=== PATIENT | male | born 1995 | race Caucasian/White ===

== ENCOUNTER 2020-03-14 18:52 | Emergency (ER) | payer OTHER ==
[~2020-03-14] VITALS: Ht 185.4 cm; Wt 113.4 kg
[2020-03-14 19:22] LABS: ABSOLUTE NEUTROPHILS 4.9 thou/uL (1.4-8.2); BASOPHILS 0.7 % (0.0-2.0); EOSINOPHILS 5.3 % (0.0-3.0); HEMATOCRIT 43.7 % (42.0-52.0); HEMOGLOBIN 14.8 gm/dL (14.0-18.0); LYMPHOCYTES 36.3 % (24.0-44.0); MCH 27.6 pg (26.0-34.0); MCHC 33.8 g/dL (28.0-37.0); MCV 81.7 fL (80.0-100.0); MONOCYTES 8.2 % (1.0-8.0); PLATELET COUNT 201 thou/uL (150-400); POLYS 49.5 % (36.0-66.0); RBC 5.34 mil/uL (4.50-6.00); RDW 13.5 % (10.5-14.5); WBC 9.9 thou/uL (4.0-11.0)
[2020-03-14 19:27] LABS: URINE BILIRUBIN NEGATIVE (Negative); URINE BLOOD NEGATIVE (Negative); URINE CLARITY CLEAR; URINE COLOR YELLOW; URINE GLUCOSE-RANDOM* NEGATIVE (Negative); URINE KETONES NEGATIVE (Negative); URINE LEUKOCYTES-REFLEX NEGATIVE (Negative); URINE NITRITE-REFLEX NEGATIVE (Negative); URINE PROTEIN (DIPSTICK) 1+ (Negative); URINE SPECIFIC GRAVITY >= 1.030 (1.005-1.035); URINE UROBILINOGEN 0.2 E.U./dl (0.2-1.0)
[2020-03-14 19:31] LABS: POTASSIUM 3.2 mmol/L (3.5-5.1)
[2020-03-14 19:36] LABS: AMP/METHAMP Negative (Negative); BARBITURATES Negative (Negative); BENZODIAZEPINES Negative (Negative); COCAINE Negative (Negative); METHADONE Negative (Negative); OPIATES Negative (Negative); PCP Negative (Negative)
[2020-03-14 19:37] LABS: ALBUMIN 4.4 g/dL (3.4-5.0); TOTAL BILIRUBIN 0.6 mg/dL (0.2-1.0); TOTAL PROTEIN 7.9 g/dL (6.4-8.2)
[2020-03-14 19:41] LABS: BACTERIA-REFLEX 1-9 Few /HPF (None Seen); CASTS None Seen /LPF (None Seen); CRYSTALS None Seen /LPF (None Seen); MUCUS 4-6 Moderate strn/LPF (None Seen); SQUAMOUS 0-3 Few /LPF (0-3); URINE RBC 3-10 Few /HPF (0-2); URINE WBC-REFLEX 0-5 Rare /HPF (0-5)
[2020-03-14] MEDS ORDERED: zyrtec PO (19:48)
[2020-03-14 20:26] LABS: BE(vivo) -2.8 mmol/L (-2 to +3); PCO2 38.8 mmHg (35.0-45.0); pH 7.372 (7.360-7.450); sO2 96.5 % (92.0-98.0)
[2020-03-14 21:43] VITALS: BP 154/92
--- NOTE | 2020-03-15 07:27 | EKG ---
[place] [address] [facility] [employer] [place] [address] ELECTROCARDIOGRAM REPORT Name: DESTINEE JEANTAINAHUNTER Room #: DEP ASHLYN Diaz#: [id number] Admission: 03/14/20 Attend Phys: Discharge: 03/14/20 Date of : [birth year] Report #: [id number] [facility] ED Test Date: 2020-03-14 Test Time: 19:17:56 Pat Name: SARAH JEAN Department: Room: Gender: M [employer]: ashlyn : 1995 Requested By: Isaias Johnston Order Number: [id number] MD: Palomo Salgado Measurements Intervals [place] Rate: 119 P: 69 CA: 177 QRS: 71 QRSD: 96 T: -51 QT: 294 QTc: 414 Interpretive Statements Sinus tachycardia Left atrial enlargement Borderline repolarization abnormality Borderline ST elevation, anterior leads Baseline wander in lead(s) V1,V2 No previous ECG available for comparison Electronically Signed On 03-15-2020 7:26:56 DOCTOR OSTEOPATHIC by Palomo Salgado [email or web address] <ELECTRONICALLY SIGNED> By: Palomo Salgado MD, [facility] 03/15/20 07 16 16 Palomo Salgado MD, FACC /EPI
== END 2020-03-14 22:28 | disposition home or self-care (01) ==
LOC: EDBD 18:52 → ER 18:52
PROVIDERS: Emergency Medicine
DX: R41.82 Altered mental status, unspecified (principal); T50.905A Adverse effect of unspecified drugs, medicaments and biological substances, initial encounter; Z79.899 Other long term (current) drug therapy; Y92.89 Other specified places as the place of occurrence of the external cause